=== PATIENT | female | born 1965 | race Caucasian/White ===

== ENCOUNTER → 2017-05-02 | Outpatient (CLI) | payer BC ==
--- NOTE | 2017-05-02 21:03 | BD ---
EXAMINATION TYPE: MG DEXA axial skeleton. DATE OF EXAM: 05/02/2017 COMPARISON: NONE CLINICAL HISTORY: Osteoporosis screening. Postmenopausal female. Height: 5'4 Weight: 166 FRAX RISK QUESTIONS: Alcohol (3 or more units per day): no Family History (Parent hip fracture): no Glucocorticoids (More than 3mos): no (Ex: prednisone, prednisolone, methylprednisolone, dexamethasone, and hydrocortisone). History of Fracture in Adulthood: no Secondary Osteoporosis: 1. Type 1 Diabetes: no 2. Hyperthyroidism: no 3. Menopause before 45: no 4. Malnutrition: no 5. Chronic liver disease: no Rheumatoid Arthritis: no Current Tobacco Use: no RISK FACTORS HISTORY OF: If Premenopausal, do you have irregular periods: MEDICATIONS: Thyroid Medications: Which medication: Levothyroxine How Lon year Additional Medications: Additional History: EXAM MEASUREMENTS: Bone mineral densitometry was performed using the [employer] System. Bone mineral density as measured about the Lumbar spine is: ----- L1-L4(G/cm2): 1.387 T Score Values are as follows: ----- L2: 1.5 ----- L3: 0.9 ----- L4: 1.5 ----- L1-L4: 1.3 Bone mineral density about the R hip (g/cm2): 1.001 Bone mineral density about the L hip (g/cm2): 0.994 T Score values are as follows: -----R Neck: -0.3 -----L Neck: -0.3 -----R Total: 0.8 -----L Total: 0.9 IMPRESSION: Normal (Values between +1 and -1 indicate normal bone mass). Consider repeating this study in 5 year s or sooner if there is some new clinical indication. NOTE: T-SCORE=SD OF THE YOUNG ADULT MEAN.
== END | disposition home or self-care (01) ==
LOC: RADBDWWP 15:08
PROVIDERS: ATTEND Obstetrics & Gynecology
DX: Z13.820 Encounter for screening for osteoporosis (principal)
CPT/HCPCS: 77080

== ENCOUNTER → 2018-03-16 | Outpatient (CLI) | payer BC ==
--- NOTE | 2018-03-20 07:04 | MM ---
Reason for exam: screening (asymptomatic). Last mammogram was performed 1 year and 1 month ago. History: Patient is postmenopausal. Family history of breast cancer in mother at age 65. Took hormonal contraceptives for 12 years. Physical Findings: A clinical breast exam by your physician is recommended on an annual basis and results should be correlated with mammographic findings. MG Screening Mammo w CAD Bilateral CC and MLO view(s) were taken. Prior study comparison: February 07, 2017, bilateral MG screening mammo w CAD. January 11, 2016, bilateral MG screening mammo w CAD. The breast tissue is heterogeneously dense. This may lower the sensitivity of mammography. Benign appearing bilateral calcifications. No suspicious abnormality. No significant changes when compared with prior studies. ASSESSMENT: Benign, BI-RAD 2 RECOMMENDATION: Routine screening mammogram of both breasts in 1 year.
== END | disposition home or self-care (01) ==
LOC: RADMAMWWP 13:55
PROVIDERS: ATTEND Obstetrics & Gynecology
DX: Z12.31 Encounter for screening mammogram for malignant neoplasm of breast (principal); Z80.3 Family history of malignant neoplasm of breast
CPT/HCPCS: 77067

== ENCOUNTER → 2018-08-14 | Outpatient (CLI) | payer BC ==
--- NOTE | 2018-08-14 14:30 | EST ---
EXERCISE STRESS AGE: 53 SEX: F HT: 65" WT: 167 PROTOCOL: Mehrdad Stress Test STAGE: 3 DURATION OF EXERCISE: 7:50 HEART RATE REST: 87 BLOOD PRESSURE REST: 104/70 MAXIMUM HEART RATE ACHIEVED: 136 MAXIMUM BLOOD PRESSURE: 129/68 85% MPHR: 140 100% MPHR: 165 METS: 9.1 INDICATIONS: Chest pain. CLINICAL INFORMATION: The patient was a exercised for a total period of 7 minutes and 50 seconds. The peak heart rate of 136 was achieved. Maximum blood pressure of 129/68 mmHg was noted. Resting EKG shows normal sinus rhythm with normal AR interval and QRS duration and normal ST-T waves. No ST-segment depression suggestive of ischemia is noted. Patient did not complain of any chest pain during the test. FINAL IMPRESSION: 1. This exercise test is not suggestive of ischemia. 2. Patient's exercise tolerance is normal. MMKENNYL / IJN: [id number] /
== END | disposition home or self-care (01) ==
LOC: RADNMMAIN 08:42
PROVIDERS: ATTEND Family Medicine
DX: R00.2 Palpitations (principal); R07.9 Chest pain, unspecified
CPT/HCPCS: 93017; 93270

== ENCOUNTER → 2019-04-09 | Outpatient (CLI) | payer BC ==
--- NOTE | 2019-04-11 14:06 | MM ---
Reason for exam: screening (asymptomatic). Last mammogram was performed 1 year and 1 month ago. History: Patient is postmenopausal and history of other cancer. Family history of breast cancer in mother at age 65. Took hormonal contraceptives for 12 years. Physical Findings: A clinical breast exam by your physician is recommended on an annual basis and results should be correlated with mammographic findings. MG Screening Mammo w CAD Bilateral CC and MLO view(s) were taken. Prior study comparison: March 16, 2018, bilateral MG screening mammo w CAD. February 07, 2017, bilateral MG screening mammo w CAD. The breast tissue is heterogeneously dense. This may lower the sensitivity of mammography. No significant changes when compared with prior studies. ASSESSMENT: Benign, BI-RAD 2 RECOMMENDATION: Routine screening mammogram of both breasts in 1 year.
== END | disposition home or self-care (01) ==
LOC: RADMAMWWP 15:46
PROVIDERS: ATTEND Obstetrics & Gynecology
DX: Z12.31 Encounter for screening mammogram for malignant neoplasm of breast (principal); Z80.3 Family history of malignant neoplasm of breast
CPT/HCPCS: 77067

== ENCOUNTER → 2020-07-23 | Outpatient (CLI) | payer BC ==
--- NOTE | 2020-07-29 10:46 | MM ---
Reason for exam: screening (asymptomatic). Last mammogram was performed 1 year and 3 months ago. History: Patient is postmenopausal and history of other cancer. Family history of breast cancer in mother at age 65. Took hormonal contraceptives for 12 years. Physical Findings: A clinical breast exam by your physician is recommended on an annual basis and results should be correlated with mammographic findings. MG Screening Mammo w CAD Bilateral CC and MLO view(s) were taken. Prior study comparison: April 09, 2019, bilateral MG screening mammo w CAD. March 16, 2018, bilateral MG screening mammo w CAD. The breast tissue is heterogeneously dense. This may lower the sensitivity of mammography. No significant changes when compared with prior studies. ASSESSMENT: Benign, BI-RAD 2 RECOMMENDATION: Routine screening mammogram of both breasts in 1 year.
== END | disposition home or self-care (01) ==
LOC: RADMAMWWP 14:02
PROVIDERS: ATTEND Obstetrics & Gynecology
DX: Z12.31 Encounter for screening mammogram for malignant neoplasm of breast (principal); Z78.0 Asymptomatic menopausal state; Z80.3 Family history of malignant neoplasm of breast
CPT/HCPCS: 77067

== ENCOUNTER → 2021-08-27 | Outpatient (CLI) | payer BC ==
--- NOTE | 2021-08-30 08:13 | MM ---
Reason for Exam: Screening (asymptomatic). Last mammogram was performed 1 year(s) and 1 month(s) ago. Patient History: Menarche at age 10. First Full-Term at age 27. Postmenopausal. Other cancer. Patient used Hormonal Contraceptives for 12 years. Mother had breast cancer, age 65. Risk Values: Joceline 5 year model risk: 2.6%. NCI Lifetime model risk: 14.6%. Prior Study Comparison: 03/16/2018 Bilateral Screening Mammogram, [facility]. 04/09/2019 Bilateral Screening Mammogram, [facility]. 07/23/2020 Bilateral Screening Mammogram, [facility]. Tissue Density: The breast tissue is heterogeneously dense. This may lower the sensitivity of mammography. Findings: Analyzed By CAD. There is no suspicious group of microcalcifications or new suspicious mass in either breast. Overall Assessment: Negative, BI-RAD 1 Management: Screening Mammogram of both breasts in 1 year. A clinical breast exam by your physician is recommended on an annual basis and results should be correlated with mammographic findings. Electronically signed and approved by: Jin Donahue DO
== END | disposition home or self-care (01) ==
LOC: RADMAMWWP 13:15
PROVIDERS: ATTEND Obstetrics & Gynecology
DX: Z12.31 Encounter for screening mammogram for malignant neoplasm of breast (principal); Z78.0 Asymptomatic menopausal state; Z80.3 Family history of malignant neoplasm of breast
CPT/HCPCS: 77067

== ENCOUNTER → 2022-09-06 | Outpatient (CLI) | payer BC ==
--- NOTE | 2022-09-06 17:28 | BD ---
EXAMINATION TYPE: Axial Bone Density DATE OF EXAM: 09/06/2022 CLINICAL HISTORY: 57 years old Female. ICD-10 CODE: N95.1 POST MENOPAUSAL SYMPTOMS Height: 64 Weight: 167 FRAX RISK QUESTIONS: nothing to note here RISK FACTORS HISTORY OF: Postmenopausal woman: yes, at 45 yrs old Hyperparathyroidism: no Adrenal Insufficiency: no MEDICATIONS: Thyroid Medications: yes, synthroid for about 5 yrs Additional Medications: vit d and calcium when remembers, same for the statin for cholesterol. Additional History: cholesterol, thyroid, EXAM MEASUREMENTS: Bone mineral densitometry was performed using the [employer] System. Bone mineral density as measured about the Lumbar spine is: ----- L1-L4(G/cm2): 1.140 T Score Values are as follows: ----- L1: 0.0 ----- L2: -1.6 ----- L3: -1.2 ----- L4: 0.8 ----- L1-L4: -0.8 Z Score Values are as follows: ----- L1: 0.8 ----- L2: -0.8 ----- L3: -0.5 ----- L4: 1.6 ----- L1-L4: 0.4 Bone mineral density has: Decreased -14.7% since study of: 05.02.2017 Bone mineral density about the R hip (g/cm2): 0.969 Bone mineral density about the L hip (g/cm2): 0.956 T Score values are as follows: -----R Neck: -0.9 -----L Neck: -1.2 -----R Total: -0.3 -----L Total: -0.4 Z Score values are as follows: -----R Neck: 0.0 -----L Neck: -0.2 -----R Total: 0.3 -----L Total: 0.2 Bone mineral density has: Decreased -13.2% since study of: 05.02.2017 FRAX%s: The graph provided illustrates a 7.0% chance for a major osteoporotic fx and a 0.4% chance fo r the hips probability for fx in 10 years time. IMPRESSION: Normal (Values between +1 and -1 indicate normal bone mass). Consider repeating this study in 5 year s or sooner if there is some new clinical indication. NOTE: T-SCORE=SD OF THE YOUNG ADULT MEAN.
--- NOTE | 2022-09-07 20:31 | MM ---
Reason for Exam: Screening (asymptomatic). Last screening mammogram was performed 12 month(s) ago. Patient History: Menarche at age 10. First Full-Term at age 27. Postmenopausal. Other cancer. Patient used Hormonal Contraceptives for 12 years. Mother had breast cancer, age 65. Risk Values: Joceline 5 year model risk: 2.7%. NCI Lifetime model risk: 14.2%. Prior Study Comparison: 04/09/2019 Bilateral Screening Mammogram, [facility]. 07/23/2020 Bilateral Screening Mammogram, [facility]. 08/27/2021 Bilateral MG screening mammo w CAD, [facility]. Tissue Density: The breast tissue is heterogeneously dense. This may lower the sensitivity of mammography. Findings: Analyzed By CAD. There is no suspicious group of microcalcifications or new suspicious mass in either breast. Overall Assessment: Negative, BI-RAD 1 Management: Screening Mammogram of both breasts in 1 year. . Patient should continue monthly self-breast exams. A clinical breast exam by your physician is recommended on an annual basis. This exam should not preclude additional follow-up of suspicious palpable abnormalities. Note on Joceline scores and lifetime risk: 1. A Joceline score greater than 3% is considered moderate risk. If this is the case, consider specialist referral to assess eligibility for a risk reducing agent. 2. If overall lifetime risk for the development of breast cancer is 20% or higher, the patient may qualify for future screening with alternating mammogram and breast MRI. Electronically signed and approved by: Ngozi Bazan M.D. Radiologist
== END | disposition home or self-care (01) ==
LOC: RADMAMWWP 13:04
PROVIDERS: ATTEND Obstetrics & Gynecology
DX: Z12.31 Encounter for screening mammogram for malignant neoplasm of breast (principal); M85.89 Other specified disorders of bone density and structure, multiple sites; Z78.0 Asymptomatic menopausal state; Z80.3 Family history of malignant neoplasm of breast
CPT/HCPCS: 77067; 77080

== ENCOUNTER → 2023-11-09 | Outpatient (CLI) | payer BC ==
--- NOTE | 2023-11-10 08:03 | MM ---
Reason for Exam: Screening (asymptomatic). Last mammogram was performed 1 year(s) and 2 month(s) ago. Patient History: Menarche at age 10. First Full-Term at age 27. Postmenopausal. Other cancer. Patient used Hormonal Contraceptives for 12 years. Mother had breast cancer, age 65. Risk Values: Joceline 5 year model risk: 2.8%. NCI Lifetime model risk: 13.9%. Prior Study Comparison: 07/23/2020 Bilateral Screening Mammogram, [facility]. 08/27/2021 Bilateral MG screening mammo w CAD, [facility]. 09/06/2022 Bilateral MG screening mammo w CAD, [facility]. Tissue Density: The breasts are heterogeneously dense, which may obscure small masses. Findings: Analyzed By CAD. No suspicious grouped calcifications. There is a nodular density in the central margin of the right breast. Spot compression view recommended. Benign calcifications noted in the left breast. Overall Assessment: Incomplete: need additional imaging evaluation, BI-RAD 0 Management: Diagnostic Mammogram of the right breast. . Patient should continue monthly self-breast exams. A clinical breast exam by your physician is recommended on an annual basis. This exam should not preclude additional follow-up of suspicious palpable abnormalities. Note on Joceline scores and lifetime risk: 1. A Joceline score greater than 3% is considered moderate risk. If this is the case, consider specialist referral to assess eligibility for a risk reducing agent. 2. If overall lifetime risk for the development of breast cancer is 20% or higher, the patient may qualify for future screening with alternating mammogram and breast MRI. [facility], , 11/10/2023 8:00 AM. Electronically signed and approved by: Ramses Dumont M.D. Radiologis
== END | disposition home or self-care (01) ==
LOC: RADMAMWWP 14:36
PROVIDERS: ATTEND Family Medicine
DX: Z12.31 Encounter for screening mammogram for malignant neoplasm of breast
CPT/HCPCS: 77067

== ENCOUNTER → 2023-11-16 | Outpatient (CLI) | payer BC ==
--- NOTE | 2023-11-16 14:42 | MM ---
Reason for Exam: Follow-up at short interval from prior study. Last screening mammogram was performed less than 1 month ago. Patient History: Menarche at age 10. First Full-Term at age 27. Postmenopausal. Other cancer. Patient used Hormonal Contraceptives for 12 years. Mother had breast cancer, age 65. Risk Values: Joceline 5 year model risk: 2.8%. NCI Lifetime model risk: 13.9%. Tissue Density: Right: The breasts are heterogeneously dense, which may obscure small masses. Findings: Analyzed By CAD. Asymmetric density at the approximate 12:00 position right breast 7 cm from the nipple measuring approximately 8 mm. Ultrasound is recommended. Overall Assessment: Incomplete: need additional imaging evaluation, BI-RAD 0 Management: Diagnostic Breast Ultrasound of the right breast. . Results were given to the patient verbally at the time of exam. Patient should continue monthly self-breast exams. A clinical breast exam by your physician is recommended on an annual basis. This exam should not preclude additional follow-up of suspicious palpable abnormalities. Note on Joceline scores and lifetime risk: 1. A Joceline score greater than 3% is considered moderate risk. If this is the case, consider specialist referral to assess eligibility for a risk reducing agent. 2. If overall lifetime risk for the development of breast cancer is 20% or higher, the patient may qualify for future screening with alternating mammogram and breast MRI. [facility], , 11/16/2023 2:38 PM. Electronically signed and approved by: Wang Hagan M.D. Radiologis
--- NOTE | 2023-11-17 14:43 | USB ---
Reason for Exam: Additional evaluation requested from abnormal screening. Patient History: Menarche at age 10. First Full-Term at age 27. Postmenopausal. Other cancer. Patient used Hormonal Contraceptives for 12 years. Mother had breast cancer, age 65. Risk Values: Joceline 5 year model risk: 2.8%. NCI Lifetime model risk: 13.9%. Technique: Method: Targeted. Prior Study Comparison: 08/27/2021 Bilateral MG screening mammo w CAD, [facility]. 09/06/2022 Bilateral MG screening mammo w CAD, [facility]. 11/09/2023 Bilateral MG screening mammo w CAD, [facility]. Findings: The upper section of the breast of the right breast, the axilla of the right breast and the retroareolar of the right breast were scanned. No solid or cystic masses are identified.. Overall Assessment: Probably benign, BI-RAD 3 Management: Diagnostic Mammogram of the right breast in 6 months. A clinical breast exam by your physician is recommended on an annual basis and results should be correlated with mammographic findings. This exam should not preclude additional follow-up of suspicious palpable abnormalities. Results were given to the patient verbally at the time of exam. [facility], , 11/17/2023 2:39 PM. Electronically signed and approved by: Wang Hagan M.D. Radiologis
== END | disposition home or self-care (01) ==
LOC: RADMAMWWP 14:04
PROVIDERS: ATTEND Family Medicine
DX: R92.8 Other abnormal and inconclusive findings on diagnostic imaging of breast (principal); Z78.0 Asymptomatic menopausal state; Z80.3 Family history of malignant neoplasm of breast
CPT/HCPCS: 77061; 77065

== ENCOUNTER → 2024-07-23 | Outpatient (CLI) | payer BC | END | disposition home or self-care (01) | LOC: RADMAMWWP 12:45 | PROVIDERS: ATTEND Family Medicine | DX: Z53.9 Procedure and treatment not carried out, unspecified reason (principal) ==